=== PATIENT | female | born 1945 | race Caucasian/White ===

== ENCOUNTER 2024-07-26 06:31 | Day surgery (SDC) | payer OTHER ==
[~2024-07-26] VITALS: Ht 147.3 cm; Wt 68.0 kg
[2024-07-26] MEDS ORDERED: ACETAMINOPHEN 500 MG TABLET ONE (06:48)
[2024-07-26] MEDS ORDERED: CELECOXIB 100 MG CAPSULE PO ONE (07:00)
[2024-07-26] MEDS ORDERED: SCOPOLAMINE HYDROBROMIDE 1 MG PATCH .72 H (TRANSDERM-SCOP) TD ONE (07:00)
[2024-07-26] MEDS ORDERED: CEFAZOLIN SOD 2 GM in D5W 50 ML IV ONE (07:00)
[2024-07-26] MEDS ORDERED: GABAPENTIN 300 MG CAPSULE PO ONE (07:00)
[2024-07-26] MEDS ORDERED: oxyCODONE HCL 10 MG TAB.ER.12H PO ONE (07:21)
[2024-07-26] MEDS ORDERED: GABAPENTIN 300 MG CAPSULE ONE (07:22)
[2024-07-26] MEDS: VANCOMYCIN HCL 1,000 MG in NS 250 ML IV ONE (07:30)
[2024-07-26] MEDS: ACETAMINOPHEN 500 MG TABLET PO ONE (07:40)
[2024-07-26] MEDS: SCOPOLAMINE HYDROBROMIDE 1 MG PATCH .72 H (TRANSDERM-SCOP) TD ONE (07:40)
[2024-07-26] MEDS: CELECOXIB 100 MG CAPSULE ONE (07:40)
[2024-07-26] MEDS ORDERED: DIPHENHYDRAMINE HCL 25 MG CAPSULE PO PRN (09:00)
[2024-07-26] MEDS ORDERED: METOCLOPRAMIDE HCL 10 MG/2 ML VIAL IVP PRN (09:00)
[2024-07-26] MEDS ORDERED: BISACODYL 10 MG/SUPPOSITORY RC PRN (09:00)
[2024-07-26] MEDS ORDERED: LACTULOSE 20 GM/30 ML UDC PO PRN (09:00)
[2024-07-26 09:04] VITALS: PULSE 67; RESP 18; TEMP 97.8; O2SAT 98
[2024-07-26] MEDS: oxyCODONE HCL 10 MG TAB.ER.12H PO ONE (09:27)
[2024-07-26] MEDS ORDERED: ROCURONIUM BROMIDE 10 MG/ML (ZEMURON) ONE (09:30)
[2024-07-26] MEDS ORDERED: MIDAZOLAM HCL 2 MG/2 ML VIAL (VERSED) ONE (09:30)
[2024-07-26] MEDS ORDERED: LR 1,000 ML IV.SOLN IV ONE (09:30)
[2024-07-26] MEDS ORDERED: TRANEXAMIC ACID 1,000 MG/10 ML VIAL ONE (09:30)
[2024-07-26] MEDS ORDERED: NS IRRIG SOLN 5000 ML IR ONE (09:30)
[2024-07-26] MEDS ORDERED: DESFLURANE 15 MIN GAS INH ONE (09:30)
[2024-07-26] MEDS ORDERED: WATER FOR IRRIGATION,STERILE 1,000 ML IRRIG.SOLN IR ONE (09:30)
[2024-07-26] MEDS ORDERED: NS IRRIG SOLN 1000 ML IR ONE (09:30)
[2024-07-26] MEDS ORDERED: DEXAMETHASONE SOD PHOSPHATE 4 MG/ML VIAL ONE (09:30)
[2024-07-26] MEDS ORDERED: BUPIVACAINE /PF 0.25% 30 ML VIAL INJ ONE (09:30)
[2024-07-26] MEDS ORDERED: fentaNYL CITRATE/PF 100 MCG/2 ML AMP ONE (09:30)
[2024-07-26] MEDS ORDERED: SUGAMMADEX SODIUM 200 MG/2 ML VIAL IV ONE (09:30)
[2024-07-26] MEDS ORDERED: ONDANSETRON HCL 4 MG/2 ML VIAL ONE (09:30)
[2024-07-26] MEDS ORDERED: VANCOMYCIN HCL 1000 MG/VIAL IV ONE (09:30)
[2024-07-26] MEDS ORDERED: PROPOFOL 200MG/ 20ML VIAL (DIPRIVAN) IV ONE (09:30)
[2024-07-26] MEDS ORDERED: ONDANSETRON HCL 4 MG/2 ML VIAL IVP PRN ×2 (10:30→11:45)
[2024-07-26] MEDS ORDERED: LABETALOL 100 MG/ 20ML VIAL IVP PRN (10:30)
[2024-07-26] MEDS ORDERED: LR 1,000 ML IV SCH (10:30)
[2024-07-26] MEDS ORDERED: HYDROmorphone 1 MG/ML INJ. CARTRIDGE IVP PRN ×4 (10:30→11:00)
[2024-07-26] MEDS ORDERED: MEPERIDINE HCL/PF 25 MG/ML DISP.SYRIN IVP PRN (10:30)
[2024-07-26] MEDS ORDERED: hydrALAZINE HCL 20 MG/ML VIAL IVP PRN (10:30)
[2024-07-26] MEDS ORDERED: oxyCODONE HCL 5 MG TABLET PO PRN (11:00)
[2024-07-26] MEDS ORDERED: LORATADINE 10 MG TABLET PO PRN (11:00)
[2024-07-26] MEDS ORDERED: traMADol HCL HCL 50 MG TABLET (ULTRAM) PO PRN (11:00)
[2024-07-26] MEDS ORDERED: ceFAZolin SODIUM 2 GM in D5W 50 ML IV SCH (11:15)
[2024-07-26] MEDS ORDERED: HYDROmorphone 1 MG/ML INJ. CARTRIDGE ONE ×3 (11:43→13:24)
[2024-07-26] MEDS: HYDROmorphone 1 MG/ML INJ. CARTRIDGE IVP PRN (11:45)
[2024-07-26 12:19] VITALS: BP_SYST 115
[2024-07-26] MEDS ORDERED: ACETAMINOPHEN 500 MG TABLET PO SCH (14:00)
[2024-07-26] MEDS ORDERED: KETOROLAC TROMETHAMINE 10 MG TABLET (TORADOL) PO SCH (14:00)
[2024-07-26] MEDS ORDERED: TAMSULOSIN HCL 0.4 MG CAP ONE (16:29)
[2024-07-26] MEDS ORDERED: oxyCODONE HCL 5 MG TABLET ONE (16:53)
[2024-07-26] MEDS: oxyCODONE HCL 5 MG TABLET PO PRN (17:10)
[2024-07-26] MEDS: TAMSULOSIN HCL 0.4 MG CAP PO ONE (17:10)
[2024-07-26] MEDS: ACETAMINOPHEN I.V. 1000 MG 100 ML IV ONE (17:15)
[2024-07-26] MEDS ORDERED: ACETAMINOPHEN I.V. 1000 MG 100 ML IV ONE (17:16)
[2024-07-26] MEDS ORDERED: SENNOSIDES/DOCUSATE SODIUM 1 TAB TABLET(SENOKOT-S) PO SCH (21:00)
[2024-07-27] MEDS ORDERED: TAMSULOSIN HCL 0.4 MG CAP PO SCH (09:00)
[2024-07-27] MEDS ORDERED: ASPIRIN 81 MG TAB.CHEW PO SCH (09:00)
[2024-07-27] MEDS ORDERED: CELECOXIB 200 MG CAPSULE PO SCH (11:00)
== END 2024-07-26 19:30 | disposition home or self-care (01) ==
LOC: SDS 06:31 → SMU 06:31 → SDS 19:30
PROVIDERS: ATTEND Student in an Organized Health Care Education/Training Program
DX: M17.11 Unilateral primary osteoarthritis, right knee (principal); I10 Essential (primary) hypertension; E78.5 Hyperlipidemia, unspecified; M25.561 Pain in right knee; E66.9 Obesity, unspecified; F41.9 Anxiety disorder, unspecified; Z91.040 Latex allergy status; Z79.899 Other long term (current) drug therapy
CPT/HCPCS: 87081; 27447; 97162; 64447; 73560; 97110; 97530; 97116; 88305; 88311; J3490 ×3; J0690; J0696; J1100; J2250; J2405; J2704; J3370; J3010; J1171; J7060 ×2; J7120; J7050; C1776 ×2; J0131